=== PATIENT | female | born 1985 | race Caucasian/White ===

== ENCOUNTER 2016-11-24 11:17 | Inpatient (IN) | payer OTHER ==
[2016-11-24] MEDS ORDERED: Sodium Chloride 0.9% 10 ML Syringe FLUSH PRN (12:42)
[2016-11-24] MEDS ORDERED: Nalbuphine 20 MG/1 ML Amp IVPUSH PRN (12:42)
[2016-11-24] MEDS ORDERED: Ondansetron 4 MG/2 ML SDV IVPUSH PRN (12:42)
[2016-11-24] MEDS ORDERED: Lidocaine 1% 50 ML MDV INJECT ONE (12:42)
[2016-11-24] MEDS ORDERED: Oxytocin/Lactated Ringers 10 UNIT/1,000 ML BAG IV SCH ×2 (12:45→13:00)
[2016-11-24] MEDS ORDERED: diphenhydrAMINE 50 MG/ML SDV IVPUSH PRN (13:00)
[2016-11-24] MEDS ORDERED: ePHEDrine 50 MG/ML SDV IVPUSH PRN (13:00)
[2016-11-24] MEDS ORDERED: fentaNYL 100 MCG/2 ML SDV EPIDUR PRN (13:00)
[2016-11-24] MEDS ORDERED: Bupivacaine/fentaNYL/NS 100 ML Bag EPIDUR SCH (13:00)
--- NOTE | 2016-11-24 13:06 | PCM.PREANE ---
Preanesthetic Assessment - Anesthesia/Transfusion/Family Hx Anesthesia History: Prior Anesthesia Without Reaction Family History of Anesthesia Reaction: No Transfusion History: Prior Transfusion Without Reaction (plasma) - Review of Systems General: No Symptoms Pulmonary: No Symptoms Cardiovascular: No Symptoms Gastrointestinal: No symptoms Neurological: No Symptoms Other: Reports: Diabetes - Physical Assessment Pulse: 57 O2 Sat by Pulse Oximetry: 96 Respiratory Rate: 20 Blood Pressure: 116/82 Height: 5 ft 3 in Weight: 77.882 kg ASA Class: 2 Mental Status: Alert & Oriented x3 Airway Class: Mallampati = 1 Dentition: Reports: Normal Dentition Thyro-Mental Finger Breadths: 3 Mouth Opening Finger Breadths: 3 ROM/Head Extension: Full Lungs: Clear to auscultation, Normal respiratory effort Cardiovascular: Regular Rate, Regular Rhythm - Allergies Allergies/Adverse Reactions: Allergies Allergy/AdvReac Type Severity Reaction Status Date / Time No Known Allergies Allergy Verified 11/24/16 12:31 - Blood Blood Available: No - Acknowledgements Anesthesia Type Planned: Epidural Pt an Appropriate Candidate for the Planned Anesthesia: Yes Alternatives and Risks of Anesthesia Discussed w Pt/Guardian: Yes Pt/Guardian Understands and Agrees with Anesthesia Plan: Yes PreAnesthesia Questionnaire Cardiovascular History: Reports: None Respiratory History: Reports: None : 5 (38 weeks) Para: 3 Endocrine/Metabolic History: Reports: Diabetes, type I Hematologic History: Reports: Other (see below) (Factor V) Oncologic (Cancer) History: Reports: None - Past Surgical History Female Surgical History: Reports: section - History Comment History Comment: novalog insulin daily - SUBSTANCE USE Smoking Status *Q: Never Smoker Tobacco Use Within Last Twelve Months: No Second Hand Smoke Exposure: No Days Per Week of Alcohol Use: 0 Recreational Drug Use History: No - HOME MEDS Home Medications: Home Meds Folic Acid/Multivit-Minerals [Adult Multivitamin Gummies] 800 mcg PO DAILY 11/24 [History] Non-Formulary Medication [NF Drug] 1 each SQ ASDIRECTED 11/24/16 [History] Vit W-Ca,Fe,FA(<1 mg) [ Vitamins] 1 each PO DAILY 11/24/16 [ History] - CURRENT (IN HOUSE) MEDS Current Meds: Current Medications Lactated Ringer's (Ringers, Lactated) 1,000 mls @ 100 mls/hr IV ASDIRECTED ANIYA Oxytocin/Lactated Ringer's (Pitocin In Lr 10 Units/1,000 Ml) 10 unit in 1,000 mls @ 500 mls/hr IV TITRATE ANIYA Oxytocin/Lactated Ringer's (Pitocin In Lr 10 Units/1,000 Ml) 10 unit in 1,000 mls @ 12 mls/hr IV TITRATE ANIYA; 2 MUNITS/MIN PRN Reason: Protocol Nalbuphine HCl (Nubain) 10 mg IVPUSH Q2H PRN PRN Reason: Pain (moderate 4-6) Ondansetron HCl (Zofran) 4 mg IVPUSH Q4H PRN PRN Reason: Nausea/Vomiting Sodium Chloride (Saline Flush) 10 ml FLUSH ASDIRECTED PRN PRN Reason: Keep Vein Open Discontinued Medications Lidocaine HCl (Xylocaine 1%) 50 ml INJECT ONETIME ONE Stop: 11/24/16 12:43 Preanesthetic Assessment - PHYSICAL ASSESSMENT Height: 5 ft 3 in Weight: 77.882 kg - ALLERGIES Allergies/Adverse Reactions: Allergies Allergy/AdvReac Type Severity Reaction Status Date / Time No Known Allergies Allergy Verified 11/24/16 12:31
[2016-11-24] MEDS ORDERED: Dextrose 5%-Lactated Ringers 1,000 ML IV SCH (13:15)
--- NOTE | 2016-11-24 15:46 | PCM.LDHP ---
L&D History of Present Illness - General Date of Service: 11/24/16 Admit Problem/Dx: Patient Status Order with Admit Dx/Problem 11/24/16 12:42 Patient Status [ADT] Routine Admission Diagnosis/Problem Admission Diagnosis/Problem - planned 11/24/16 15:11 Intrauterine at 38-3/7 weeks gestation for induction of labor due to high risk status. 11/24/16 15:57 Source of Information: Patient History Limitations: Reports: No limitations - History of Present Illness Introduction:: History of Present Illness: Amy is a 30-year-old 5 para 2-1-1-3 female presenting for induction of labor with history of Type 1 insulin-dependent diabetes mellitus, x2, HELLP syndrome with first , heterozygous mutation for Factor V Leiden, and MTHFR deficiency. ALEXSANDRA is 12/05/16 based on early ultrasound on 04/21/16. She has not had many contractions and is feeling comfortable so far. course has been complicated by intermittent RUQ abdominal discomfort that eventually disappeared. Blood sugars were largely well-controlled. She has a bit of trouble getting them leveled out right away and was having some highs in the 200s after breakfast, however, she was able to control them. She has had some night-time lows toward the end of . Last HbA1c done on 07/28/17 was 5.2. 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 ALEXSANDRA 12/05/16 based on ultrasound on 04/21/16. Her first was complicated by HELLP syndrome and ended in a section with a viable M weighing 7lbs 2oz. Second full-term was a successful , 7lbs 1oz M. Third full-term was also a successful of a viable M, 8lbs 2oz. She also has history of a miscarriage. Prior to , menses were regular. She was not on BCP at time of conception. No history of STIs Blood type O positive, antibody negative. Rubella immune, VDRL/RPR nonreactive. Hepatitis B surface antigen negative, HIV negative. Chlamydia and gonorrhea PCR negative. GBS negative. Tdap and influenza vaccinations given. Past Medical History: - Type 1 Diabetes Mellitus - Heterozygous mutation, Factor V Leiden - MTHFR Deficiency - History of plasma transfusion Past Surgical History: - section x1, 2008 Allergies: No known drug allergies. Medications: - Glucagon for emergencies, 1 mg injection - Bill Contour Test In Vitro Strips - vitamins - Folic Acid 800 mcg - Insulin pump, novolog Family History: - Mother - alive and well - Father - hypertension; alive and well - One sister, one brother - both alive and well - MGM - CVA - MGF - alive, kidney disease - PGM - CVA, - PGF - Social History: Patient lives in [place] with her and three sons. She denies use of tobacco products, drugs of abuse, and alcohol. Review of Systems: General: Patient is feeling well and is not in any acute distress. HEENT: Normal. Cardiac: No palpitations, discomfort. Respiratory: No shortness of breath, wheezing, coughing. GI: No changes in bowel habits unrelated to . : No changes unrelated to . Musculoskeletal: Normal. Neurologic/Psychiatric: Good mood, no anxiety or depression. Physical Exam: General: Pleasant, well-nourished female in no apparent distress. No pain with contractions yet. Vitals: BP 116/82, pulse 57, respirations 20, oxygen sats 96%. Good variability with accelerations on monitor. HEENT: Normocephalic, atraumatic. PERRLA. Symmetrical ears and nose. Cardiovascular: Regular rate and rhythm without murmur. Respiratory: Clear to auscultation bilaterally. No wheezing. Abdomen: Gravid, appropriate for gestational age. Genitourinary: Normal. Cervix: 3 cm/80%/-3/soft/mid-post Musculoskeletal: Good muscle tone. Minimal edema. Neurologic: Normal. - Related Data Allergies/Adverse Reactions: Allergies Allergy/AdvReac Type Severity Reaction Status Date / Time No Known Allergies Allergy Verified 11/24/16 12:31 Home Medications: Home Meds Folic Acid/Multivit-Minerals [Adult Multivitamin Gummies] 800 mcg PO DAILY 11/24 [History] Non-Formulary Medication [NF Drug] 1 each SQ ASDIRECTED 11/24/16 [History] Vit W-Ca,Fe,FA(<1 mg) [ Vitamins] 1 each PO DAILY 11/24/16 [ History] Past Medical History Cardiovascular History: Reports: None Respiratory History: Reports: None OBSTETRICIAN GYNECOLOGIST History: Reports: , Other (see below) Other OB/BYN History: Hx of Previous Section Endocrine/Metabolic History: Reports: Diabetes, type I Hematologic History: Reports: Other (see below) (Factor V) Other Hematologic History: Heteroxygous factor V Leiden mutation, Hx of HELLP syndrome with first . Oncologic (Cancer) History: Reports: None - Past Surgical History Female Surgical History: Reports: section - History Comment History Comment: novalog insulin daily Social & Family History - Family History Family Medical History: Noncontributory - Tobacco Use Smoking Status *Q: Never Smoker Second Hand Smoke Exposure: No - Caffeine Use Caffeine Use: Reports: None - Alcohol Use Days Per Week of Alcohol Use: 0 - Recreational Drug Use Recreational Drug Use: No H&P Review of Systems - Review of Systems: Review Of Systems: See Below L&D Exam - Exam Exam: See Below - Vital Signs Vital Signs: Last Vital Signs Temp 36.1 C 11/24/16 11:45 Pulse 57 L 11/24/16 13:07 Resp 20 11/24/16 13:07 BP 116/82 11/24/16 13:07 Pulse Ox 96 11/24/16 13:07 Weight: 77.882 kg - Patient Data Lab Results last 24 hrs: Laboratory Results - last 24 hr 11/24/16 11/24/16 11/24/16 Range/Units 13:05 13:05 14:32 WBC 9.32 (3.98-10.04) K/mm3 RBC 4.26 (3.98-5.22) M/mm3 Hgb 13.4 (11.2-15.7) gm/L Hct 38.9 (34.1-44.9) % MCV 91.3 (79.4-94.8) fl MCH 31.5 (25.6-32.2) pg MCHC 34.4 (32.2-35.5) g/dl RDW Std Deviation 46.7 H (36.4-46.3) fL Plt Count 205 (182-369) K/mm3 MPV 9.6 (9.4-12.3) fl Neut % (Auto) 72.8 H (34.0-71.1) % Lymph % (Auto) 19.2 L (19.3-51.7) % Kern % (Auto) 7.0 (4.7-12.5) % Eos % (Auto) 0.6 L (0.7-5.8) Baso % (Auto) 0.3 (0.1-1.2) % Neut # (Auto) 6.78 H (1.56-6.13) K/mm3 Lymph # (Auto) 1.79 (1.18-3.74) K/mm3 Kern # (Auto) 0.65 H (0.24-0.36) K/mm3 Eos # (Auto) 0.06 (0.04-0.36) K/mm3 Baso # (Auto) 0.03 (0.01-0.08) K/mm3 POC Glucose 118 H (70-105) mg/dL Blood Type O NEGATIVE Gel Antibody Screen Positive Result Diagrams: 11/24/16 13:05 Problem List Initiated/Reviewed/Updated: Yes Orders Last 24hrs: Active Orders 24 hr Category Date Time Status Patient Status [ADT] Routine ADT 11/24/16 12:42 Active Activity as Tolerated [RC] PFP Care 11/24/16 12:42 Active Blood Glucose Check, Bedside [RC] Q1HR Care 11/24/16 13:00 Active Communication Order [RC] ASDIRECTED Care 11/24/16 12:42 Active Heart Tones [RC] ASDIRECTED Care 11/24/16 12:42 Active Notify Provider [RC] ASDIRECTED Care 11/24/16 13:00 Active Notify Provider [RC] PFP Care 11/24/16 12:42 Active Notify Provider [RC] PRN Care 11/24/16 12:42 Active Peripheral IV Care [RC] . DIRECTED Care 11/24/16 12:42 Active Vital Signs [RC] PER UNIT ROUTINE Care 11/24/16 12:42 Active Regular Diet [DIET] Diet 11/24/16 Lunch Active ANTIBODY IDENTIFICATION [BBK] Stat Lab 11/24/16 13:05 Results TYPE AND SCREEN [BBK] Stat Lab 11/24/16 13:05 Results Bupivacaine/fentaNYL/NS [fentaNYL/Bupivacaine/NS 2 MCG- Med 11/24/16 13:00 Active 0.125% 100 ML] 100 ml EPIDUR ASDIRECTED Dextrose 5%-Lactated Ringers 1,000 ml Med 11/24/16 13:15 Active IV ASDIRECTED Lactated Ringers [Ringers, Lactated] 1,000 ml Med 11/24/16 12:45 Active IV ASDIRECTED Nalbuphine [Nubain] Med 11/24/16 12:42 Active 10 mg IVPUSH Q2H PRN Ondansetron [Zofran] Med 11/24/16 12:42 Active 4 mg IVPUSH Q4H PRN Oxytocin/Lactated Ringers [Pitocin in LR 10 Units/1,000 Med 11/24/16 12:45 Active ML] 10 unit in 1,000 ml IV TITRATE Oxytocin/Lactated Ringers [Pitocin in LR 10 Units/1,000 Med 11/24/16 13:00 Active ML] 10 unit in 1,000 ml IV TITRATE Sodium Chloride 0.9% [Saline Flush] Med 11/24/16 12:42 Active 10 ml FLUSH ASDIRECTED PRN diphenhydrAMINE [Benadryl] Med 11/24/16 13:00 Active 25 mg IVPUSH Q6H PRN ePHEDrine [ePHEDrine Sulfate] Med 11/24/16 13:00 Active 5 mg IVPUSH ASDIRECTED PRN fentaNYL [Sublimaze] Med 11/24/16 13:00 Active 100 mcg EPIDUR Q3H PRN Electronic Heart Tones Ext w TOCO [WOMSER] Oth 11/24/16 12:42 Ordered Routine Electronic Heart Tones Internal [WOMSER] Per Unit Oth 11/24/16 12:42 Ordered Routine Peripheral IV Insertion Adult [OM.PC] Routine Oth 11/24/16 12:42 Ordered Resuscitation Status Routine Resus Stat 11/24/16 12:42 Ordered Medication Orders Diphenhydramine HCl (Benadryl) 25 mg IVPUSH Q6H PRN PRN Reason: pruritis Ephedrine Sulfate (Ephedrine Sulfate) 5 mg IVPUSH ASDIRECTED PRN PRN Reason: Hypotension Fentanyl (Sublimaze) 100 mcg EPIDUR Q3H PRN PRN Reason: Pain Fentanyl/Bupivacaine HCl (Fentanyl/Bupivacaine/Ns 2 Mcg-0.125% 100 Ml) 100 ml EPIDUR ASDIRECTED ANIYA Lactated Ringer's (Ringers, Lactated) 1,000 mls @ 100 mls/hr IV ASDIRECTED ANIYA Oxytocin/Lactated Ringer's (Pitocin In Lr 10 Units/1,000 Ml) 10 unit in 1,000 mls @ 500 mls/hr IV TITRATE ANIYA Oxytocin/Lactated Ringer's (Pitocin In Lr 10 Units/1,000 Ml) 10 unit in 1,000 mls @ 12 mls/hr IV TITRATE ANIYA; 2 MUNITS/MIN PRN Reason: Protocol Last Titration: 11/24/16 15:00 Dose: 4 munits/min, 24 mls/hr Admin: 11/24/16 13:30 Dose: 2 munits/min, 12 mls/hr Dextrose/Lactated Ringer's (Dextrose 5%-Lactated Ringers) 1,000 mls @ 100 mls/ hr IV ASDIRECTED ANIYA Last Admin: 11/24/16 13:30 Dose: 100 mls/hr Nalbuphine HCl (Nubain) 10 mg IVPUSH Q2H PRN PRN Reason: Pain (moderate 4-6) Ondansetron HCl (Zofran) 4 mg IVPUSH Q4H PRN PRN Reason: Nausea/Vomiting Sodium Chloride (Saline Flush) 10 ml FLUSH ASDIRECTED PRN PRN Reason: Keep Vein Open Assessment/Plan Comment:: Assessment: 1. Intrauterine at 38-3/7 weeks gestation age. 2. Type 1 Diabetes mellitus 3. History of primary section and x2 4. Heterozygous mutation for Factor V Leiden 5. MTHFR Deficiency 6. GBS negative. 7. Open to an epidural 8. Tdap given. Plan: 1. IV Pitocin to augment labor 2. Hourly checks of blood sugars 3. Continuous heart rate monitoring. 4. Epidural if/when desired. 5. Anticipate normal spontaneous vaginal delivery
[2016-11-24] MEDS: Lactated Ringers 1,000 ML IV SCH ×3 (18:07→20:25)
--- NOTE | 2016-11-24 20:54 | PCM.SN ---
- Free Text/Narrative Note: Amy is a 30-year-old 5 now para 3-1-1-4 female. She was brought in this morning for an induction. She slowly progressed to 5 cm so was augmented with IV pitocin. Artificial rupture of membranes was performed once baby's head was low enough. She quickly progressed to complete. She delivered a 3450g (7lbs 9.7oz), 21 inch long, viable male in REGINE position over an intact perineum at 2028 hours. Baby's name is Kanika Edwards. Apgars were 9 and 9 and 1 and 5 minutes, respectively. Placenta was then delivered at 2033 hours in a Best presentation. EBL 200cc. Nuchal cord x1, easily reduced over the head. Patient plans to nurse. She is doing well.
[2016-11-24] MEDS ORDERED: Benzocaine/Menthol 20%-0.5% Spray 56 GM Canister TOP PRN (21:03)
[2016-11-24] MEDS ORDERED: Lanolin 100% Cream 7 GM Tube TOP PRN (21:03)
[2016-11-24] MEDS ORDERED: Docusate Sodium 100 MG Cap PO PRN (21:03)
[2016-11-24] MEDS ORDERED: Witch Hazel Medicated Pads 100/Jar TOP PRN (21:03)
[2016-11-24] MEDS ORDERED: Acetaminophen 325 MG Tab PO PRN (21:03)
[2016-11-25] MEDS: Ibuprofen 600 MG Tab PO PRN ×4 (03:24→17:45)
--- NOTE | 2016-11-25 07:34 | PCM.SN ---
- Free Text/Narrative Note: Subjective: Amy is a 30-year-old S3W5-1-0-2 female who is day 1 today. She is feeling pretty good this morning. Bleeding is still fairly heavy and pain isn't "too bad". Breast feeding is going well so far and blood sugars have been controlled. She was resting quietly in bed this morning. Objective: Afebrile, no tachycardia. WBC 11.84, RBC 4.11, Hgb 12.9. Abdomen is soft, nontender. Uterus 4 fingers below umbilicus. Assessment/Plan: Day 1. Patient is doing well, pain controlled for now. Stay on top of pain control. Continue monitoring blood sugars. Discharge home, possibly tomorrow.
--- NOTE | 2016-11-25 08:48 | PCM48HPAN ---
Post Anesthesia Note - EVALUATION WITHIN 48HRS OF ANESTHETIC Vital Signs in Normal Range: Yes Patient Participated in Evaluation: Yes Respiratory Function Stable: Yes Airway Patent: Yes Cardiovascular Function Stable: Yes Hydration Status Stable: Yes Pain Control Satisfactory: Yes Nausea and Vomiting Control Satisfactory: Yes Mental Status Recovered: Yes
[2016-11-25] MEDS ORDERED: Bupivacaine 0.25% 10 ML SDV ONE (22:22)
[2016-11-26 05:47] VITALS: BP 117/71
--- NOTE | 2016-11-26 08:54 | PCM.DCSUM1 ---
Discharge Summary - Hospital Course Free Text/Narrative:: Amy is a 30-year-old 5 now para 3-1-1-4 female. She was brought in this morning for an induction. She slowly progressed to 5 cm so was augmented with IV pitocin. Artificial rupture of membranes was performed once baby's head was low enough. She quickly progressed to complete. She delivered a 3450g (7lbs 9.7oz), 21 inch long, viable male in REGINE position over an intact perineum at 2028 hours. Baby's name is Kanika Edwards. Apgars were 9 and 9 and 1 and 5 minutes, respectively. Placenta was then delivered at 2033 hours in a Best presentation. EBL 200cc. Nuchal cord x1, easily reduced over the head. Patient plans to nurse. blood sugars have been doing well. Stable. Is doing well. She is nursing without problems and lochia is minimal. Patient is ready for discharge - Discharge Data Discharge Date: 11/26/16 Discharge Disposition: Home, Self-Care 01 Condition: Good - Patient Instructions Diet: Regular Diet as Tolerated Activity: As Tolerated (No intercourse or tampons till discharge is gone. ) Driving: May Drive Today Showering/Bathing: May Shower (May take a bath.) Notify Provider of: Fever, Increased Pain, Swelling and Redness, Nausea and/or Vomiting - Discharge Plan Home Medications: Home Meds Folic Acid/Multivit-Minerals [Adult Multivitamin Gummies] 800 mcg PO DAILY 11/24 [History] Non-Formulary Medication [NF Drug] 1 each SQ ASDIRECTED 11/24/16 [History] Vit W-Ca,Fe,FA(<1 mg) [ Vitamins] 1 each PO DAILY 11/24/16 [ History] Ibuprofen [IJD: Ibuprofen] 600 mg PO Q4H PRN #30 tablet 11/26/16 [Rx] Referrals: Eleazar Olivera MD [Primary Care Provider] - (RTC 6 weeks-Dr. Olivera-[facility] - Discharge Summary/Plan Comment DC Time >30 min.: No Discharge Summary/Plan Comment: Discharge instructions: 1. Discharge home. 2. Regular, high fiber, nursing diet. 3. Precautions given concern increased pain, bleeding, temperature, signs or symptoms of DVT/PE. 4. Medications medications to come discussed with him given to the patient. A clinic-Dr. Jarod alvarenga [facility]. Diagnosis: 1. 38 week intrauterine -delivered 2. History of previous section 3. Type 1 diabetes. Condition: Good - Patient Data Vitals - Most Recent: Last Vital Signs Temp 37.2 C 11/26/16 05:30 Pulse 57 L 11/26/16 05:30 Resp 16 11/26/16 05:30 BP 117/71 11/26/16 05:30 Pulse Ox 96 11/26/16 05:30 Weight - Most Recent: 77.882 kg I&O - Last 24 hours: Intake & Output 11/25/16 11/26/16 11/26/16 22:59 06:59 14:59 Intake Total 0 Balance 0 Lab Results - Last 24 hrs: Laboratory Results - last 24 hr 11/25/16 Range/Units 06:37 Blood Type O NEGATIVE Gel Antibody Screen Positive Screen 1 ros/5 flds - neg RhIG Candidate? Yes Rhogam Indicated Yes, baby rh pos H Med Orders - Current: Current Medications Acetaminophen (Tylenol) 650 mg PO Q4H PRN PRN Reason: mild pain or fever Benzocaine/Menthol (Dermoplast Pain Relief [place]) 0 gm TOP ASDIRECTED PRN PRN Reason: Perineal Comfort Measure Last Admin: 11/24/16 22:15 Dose: 1 canister Docusate Sodium (Colace) 100 mg PO BID PRN PRN Reason: Constipation Emollient Ointment (Lansinoh Hpa) 0 gm TOP ASDIRECTED PRN PRN Reason: Sore Nipples Ibuprofen (Motrin) 600 mg PO Q4H PRN PRN Reason: Mild pain or fever Last Admin: 11/25/16 17:45 Dose: 600 mg Witch Amanda (Tucks) 1 pad TOP ASDIRECTED PRN PRN Reason: Hemorrhoid pain Last Admin: 11/24/16 22:16 Dose: 1 container Discontinued Medications Diphenhydramine HCl (Benadryl) 25 mg IVPUSH Q6H PRN PRN Reason: pruritis Ephedrine Sulfate (Ephedrine Sulfate) 5 mg IVPUSH ASDIRECTED PRN PRN Reason: Hypotension Fentanyl (Sublimaze) 100 mcg EPIDUR Q3H PRN PRN Reason: Pain Last Admin: 11/24/16 18:47 Dose: 100 mcg Fentanyl/Bupivacaine HCl (Fentanyl/Bupivacaine/Ns 2 Mcg-0.125% 100 Ml) 100 ml EPIDUR ASDIRECTED [facility] Last Admin: 11/24/16 18:48 Dose: 100 ml Lactated Ringer's (Ringers, Lactated) 1,000 mls @ 100 mls/hr IV ASDIRECTED [facility] Last Admin: 11/24/16 20:25 Dose: 500 mls/hr Oxytocin/Lactated Ringer's (Pitocin In Lr 10 Units/1,000 Ml) 10 unit in 1,000 mls @ 500 mls/hr IV TITRATE ANIYA Oxytocin/Lactated Ringer's (Pitocin In Lr 10 Units/1,000 Ml) 10 unit in 1,000 mls @ 12 mls/hr IV TITRATE ANIYA; 2 MUNITS/MIN PRN Reason: Protocol Last Titration: 11/24/16 20:29 Dose: 500 mls/hr Dextrose/Lactated Ringer's (Dextrose 5%-Lactated Ringers) 1,000 mls @ 100 mls/ hr IV ASDIRECTED [facility] Last Infusion: 11/24/16 20:29 Dose: 50 mls/hr Lidocaine HCl (Xylocaine 1%) 50 ml INJECT ONETIME ONE Stop: 11/24/16 12:43 Last Admin: 11/24/16 20:57 Dose: Not Given Nalbuphine HCl (Nubain) 10 mg IVPUSH Q2H PRN PRN Reason: Pain (moderate 4-6) Ondansetron HCl (Zofran) 4 mg IVPUSH Q4H PRN PRN Reason: Nausea/Vomiting Sodium Chloride (Saline Flush) 10 ml FLUSH ASDIRECTED PRN PRN Reason: Keep Vein Open *Q Meaningful Use (DIS) - VTE *Q VTE Criteria *Q: - Stroke *Q Stroke Criteria *Q: - AMI *Q AMI Criteria *Q:
== END 2016-11-26 11:15 | disposition home or self-care (01) | DRG 774 ==
LOC: JD.OB 11:29 → OBSVTOIN 20:29 → JD.OB 20:29
PROVIDERS: ADMIT Obstetrics & Gynecology; ATTEND Obstetrics & Gynecology
PROC: 10E0XZZ Delivery of Products of Conception, External Approach (ICD-10-PCS; principal; 2016-11-24)
PROC: 10907ZC Drainage of Amniotic Fluid, Therapeutic from Products of Conception, Via Natural or Artificial Opening (ICD-10-PCS; 2016-11-24)
PROC: 00HU33Z Insertion of Infusion Device into Spinal Canal, Percutaneous Approach (ICD-10-PCS; 2016-11-24)
PROC: 3E0R3CZ (ICD-10-PCS; 2016-11-24)
DX: O99.284 Endocrine, nutritional and metabolic diseases complicating childbirth (principal); O24.02 Pre-existing type 1 diabetes mellitus, in childbirth; E72.12 Methylenetetrahydrofolate reductase deficiency; D68.51 Activated protein C resistance; E10.9 Type 1 diabetes mellitus without complications; O99.12 Other diseases of the blood and blood-forming organs and certain disorders involving the immune mechanism complicating childbirth; Z3A.38 38 weeks gestation of pregnancy; Z37.0 Single live birth; O34.211 Maternal care for low transverse scar from previous cesarean delivery; N85.8 Other specified noninflammatory disorders of uterus; Z79.4 Long term (current) use of insulin; Z96.41 Presence of insulin pump (external) (internal); O69.81X0 Labor and delivery complicated by cord around neck, without compression, not applicable or unspecified
CPT/HCPCS: 36415; 82962; 85025; 85027; 85461; 86850; 86870; 86900; 86901; A9270-GY; J2590; J2790; J3010; J7042; J7120

== ENCOUNTER 2019-10-05 09:22 | Inpatient (IN) | payer OTHER ==
[2019-10-05] MEDS ORDERED: Sodium Chloride 0.9% 10 ML Syringe FLUSH PRN (09:45)
[2019-10-05] MEDS ORDERED: Lactated Ringers 1,000 ML IV SCH (09:45)
[2019-10-05] MEDS ORDERED: Nalbuphine 10 MG/ML Syringe IVPUSH PRN (09:45)
--- NOTE | 2019-10-05 12:03 | PCM.SN ---
- Free Text/Narrative Note: Patient's came to desk at 10:09 and stated that she felt very light headed. I promptly went to the room and found patient briefly unresponsive. Blood pressure 60/40. Rapid response called. Blood glucose checked. See rr reporting. No bleeding. After about 5 minutes felt much better. Found to be complete.
--- NOTE | 2019-10-05 12:18 | PCM.LDHP ---
L&D History of Present Illness - General Date of Service: 10/05/19 Admit Problem/Dx: Patient Status Order with Admit Dx/Problem 10/05/19 09:45 Patient Status [ADT] Routine Admission Diagnosis/Problem Admission Diagnosis/Problem Active labor - Related Data Allergies/Adverse Reactions: Allergies Allergy/AdvReac Type Severity Reaction Status Date / Time No Known Allergies Allergy Verified 11/24/16 12:31 Home Medications: Home Meds Vit Calc,Iron,Folic [ Vitamins] 1 each PO DAILY 11/24/16 [ History] RX: Folic Acid/Multivit-Minerals [Adult Multivitamin Gummies] 800 mcg PO DAILY 11/24/16 [History] Aspirin [Adult Low Dose Aspirin EC] 81 mg PO DAILY 10/05/19 [History] Insulin Aspart (Niacinamide) [Fiasp Penfill 100 Unit/ml Cart] 100 unit SQ ASDIRECTED 10/05/19 [History] Past Medical History Cardiovascular History: Reports: None Respiratory History: Reports: None 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 Oncologic (Cancer) History: Reports: None - Past Surgical History Female Surgical History: Reports: Section - History Comment History Comment: novalog insulin daily Social & Family History - Family History Family Medical History: Noncontributory - Caffeine Use Caffeine Use: Reports: None H&P Review of Systems - Review of Systems: Review Of Systems: See Below General: Reports: No Symptoms HEENT: Reports: No Symptoms Pulmonary: Reports: No Symptoms Cardiovascular: Reports: No Symptoms Gastrointestinal: Reports: No Symptoms Genitourinary: Reports: No Symptoms Musculoskeletal: Reports: No Symptoms Skin: Reports: No Symptoms Psychiatric: Reports: No Symptoms Neurological: Reports: No Symptoms Hematologic/Lymphatic: Reports: No Symptoms Immunologic: Reports: No Symptoms L&D Exam - Exam Exam: See Below - Vital Signs Weight: 86.636 kg - OB Specific Contraction Intensity: Mild to Moderate Movement: Active Heart Tones: Present Heart Rate (FHR) Variability: Moderate (6-25 bmp) Presentation: Vertex - Braswell Score Braswell Score Cervix Position: Anterior Braswell Score Effacement: >80% Braswell Score Dilation: > 5 cm Braswell Score Infant's Station: +1, +2 - Exam General: Alert, Oriented HEENT: PERRLA, Conjunctiva Clear, EACs Clear, EOMI, Hearing Intact, Mucosa Moist & [place], Nares Patent, Normal Nasal Septum, Posterior Pharynx Clear, TMs Clear Neck: Supple, Trachea Midline Lungs: Clear to Auscultation, Normal Respiratory Effort Cardiovascular: Regular Rate, Regular Rhythm GI/Abdominal Exam: Normal Bowel Sounds, Soft, Non-Tender, No Organomegaly, No Distention, No Abnormal Bruit, No Mass, Pelvis Stable Back Exam: Normal Inspection, Full Range of Motion Extremities: Normal Inspection, Normal Range of Motion, Non-Tender, No Pedal Edema, Normal Capillary Refill Skin: Warm, Dry, Intact Neurological: Cranial Nerves Intact, Reflexes Equal Bilateral Psychiatric: Alert, Normal Affect, Normal Mood - Patient Data Lab Results Last 24 hrs: Laboratory Results - last 24 hr 10/05/19 10/05/19 10/05/19 Range/Units 09:41 09:50 09:55 WBC 12.32 H (3.98-10.04) K/mm3 RBC 4.43 (3.98-5.22) M/mm3 Hgb 12.2 (11.2-15.7) gm/dl Hct 38.1 (34.1-44.9) % MCV 86.0 (79.4-94.8) fl MCH 27.5 (25.6-32.2) pg MCHC 32.0 L (32.2-35.5) g/dl RDW Std Deviation 40.9 (36.4-46.3) fL Plt Count 264 (182-369) K/mm3 MPV 9.8 (9.4-12.3) fl Neut % (Auto) 81.1 H (34.0-71.1) % Lymph % (Auto) 12.4 L (19.3-51.7) % [place] % (Auto) 5.4 (4.7-12.5) % Eos % (Auto) 0.6 L (0.7-5.8) Baso % (Auto) 0.2 (0.1-1.2) % Neut # (Auto) 9.98 H (1.56-6.13) K/mm3 Lymph # (Auto) 1.53 (1.18-3.74) K/mm3 [place] # (Auto) 0.67 H (0.24-0.36) K/mm3 Eos # (Auto) 0.08 (0.04-0.36) K/mm3 Baso # (Auto) 0.02 (0.01-0.08) K/mm3 Sodium (136-145) mEq/L Potassium (3.5-5.1) mEq/L Chloride (98-107) mEq/L Carbon Dioxide (21-32) mEq/L Anion Gap (5-15) BUN (7-18) mg/dL Creatinine (0.55-1.02) mg/dL Est Cr Clr Drug Dosing mL/min Estimated GFR (MDRD) (>60) mL/min BUN/Creatinine Ratio (14-18) Glucose (74-106) mg/dL POC Glucose 67 L (70-105) mg/dL Calcium (8.5-10.1) mg/dL Total Bilirubin (0.2-1.0) mg/dL AST (15-37) U/L ALT (14-59) U/L Alkaline Phosphatase (46-116) U/L Total Protein (6.4-8.2) g/dl Albumin (3.4-5.0) g/dl Globulin gm/dL Albumin/Globulin Ratio (1-2) Blood Type O NEGATIVE Gel Antibody Screen Positive 10/05/19 10/05/19 Range/Units 09:55 10:09 WBC (3.98-10.04) K/mm3 RBC (3.98-5.22) M/mm3 Hgb (11.2-15.7) gm/dl Hct (34.1-44.9) % MCV (79.4-94.8) fl MCH (25.6-32.2) pg MCHC (32.2-35.5) g/dl RDW Std Deviation (36.4-46.3) fL Plt Count (182-369) K/mm3 MPV (9.4-12.3) fl Neut % (Auto) (34.0-71.1) % Lymph % (Auto) (19.3-51.7) % [place] % (Auto) (4.7-12.5) % Eos % (Auto) (0.7-5.8) Baso % (Auto) (0.1-1.2) % Neut # (Auto) (1.56-6.13) K/mm3 Lymph # (Auto) (1.18-3.74) K/mm3 [place] # (Auto) (0.24-0.36) K/mm3 Eos # (Auto) (0.04-0.36) K/mm3 Baso # (Auto) (0.01-0.08) K/mm3 Sodium 140 (136-145) mEq/L Potassium 3.6 (3.5-5.1) mEq/L Chloride 105 (98-107) mEq/L Carbon Dioxide 20 L (21-32) mEq/L Anion Gap 18.6 H (5-15) BUN 9 (7-18) mg/dL Creatinine 1.0 (0.55-1.02) mg/dL Est Cr Clr Drug Dosing 68.45 mL/min Estimated GFR (MDRD) > 60 (>60) mL/min BUN/Creatinine Ratio 9.0 L (14-18) Glucose 83 (74-106) mg/dL POC Glucose 94 (70-105) mg/dL Calcium 8.4 L (8.5-10.1) mg/dL Total Bilirubin 0.3 (0.2-1.0) mg/dL AST 33 (15-37) U/L ALT 32 (14-59) U/L Alkaline Phosphatase 141 H (46-116) U/L Total Protein 6.4 (6.4-8.2) g/dl Albumin 2.4 L (3.4-5.0) g/dl Globulin 4.0 gm/dL Albumin/Globulin Ratio 0.6 L (1-2) Blood Type Gel Antibody Screen Result Diagrams: 10/05/19 09:50 10/05/19 09:55 Problem List Initiated/Reviewed/Updated: Yes Orders Last 24hrs: Active Orders 24 hr Category Date Time Status Patient Status [ADT] Routine ADT 10/05/19 09:45 Active Activity as Tolerated [RC] PFP Care 10/05/19 09:45 Active Communication Order [RC] ASDIRECTED Care 10/05/19 09:45 Active Heart Tones [RC] ASDIRECTED Care 10/05/19 09:46 Active Non Stress Test [RC] PER UNIT ROUTINE Care 10/05/19 09:45 Active Notify Provider [RC] PFP Care 10/05/19 09:45 Active Notify Provider [RC] PRN Care 10/05/19 09:45 Active Peripheral IV Care [RC] . DIRECTED Care 10/05/19 09:46 Active Pump Management, Intrathecal [RC] ASDIRECTED Care 10/05/19 09:46 Active Urinary Catheter Assessment [RC] ASDIRECTED Care 10/05/19 09:45 Active Vital Signs [RC] PER UNIT ROUTINE Care 10/05/19 09:45 Active Regular Diet [DIET] Diet 10/05/19 Breakfast Active ANTIBODY IDENTIFICATION [BBK] Stat Lab 10/05/19 09:55 Results BLOOD BANK HOLD SPECIMEN [BBK] Stat Lab 10/05/19 09:55 Results RAPID PLASMA REAGIN,RPR [CHEM] Stat Lab 10/05/19 09:50 Received TYPE AND SCREEN [BBK] Stat Lab 10/05/19 09:55 Results Lactated Ringers [Ringers, Lactated] 1,000 ml Med 10/05/19 09:45 Active IV ASDIRECTED Nalbuphine [Nubain] Med 10/05/19 09:45 Active 10 mg IVPUSH Q2H PRN Sodium Chloride 0.9% [Saline Flush] Med 10/05/19 09:45 Active 10 ml FLUSH ASDIRECTED PRN Electronic Heart Tones Ext w TOCO [WOMSER] Oth 10/05/19 09:45 Ordered Routine Electronic Heart Tones Internal [WOMSER] Per Unit Oth 10/05/19 09:45 Ordered Routine Peripheral IV Insertion Adult [OM.PC] Routine Oth 10/05/19 09:45 Ordered Resuscitation Status Routine Resus Stat 10/05/19 09:45 Ordered Medication Orders Lactated Ringer's (Ringers, Lactated) 1,000 mls @ 100 mls/hr IV ASDIRECTED ANIYA Nalbuphine HCl (Nubain) 10 mg IVPUSH Q2H PRN PRN Reason: Pain Sodium Chloride (Saline Flush) 10 ml FLUSH ASDIRECTED PRN PRN Reason: Keep Vein Open
--- NOTE | 2019-10-05 12:24 | PCM.SN ---
- Free Text/Narrative Note: Stage I - Patient presented in active labor. Progressed to complete with overall reassuring FHT other than rapid response time period. Stage II - of viable male, weight 9#6 oz, 8/9 APGARS. Head delivered in controlled manner over intact perineum. Body and shoulders without significant difficultly. Cord clamped and cut. Baby to warmer.\ Stage III - of intact placenta. 3vc no laceration. EBL 400
[2019-10-05] MEDS ORDERED: Oxytocin/Lactated Ringers 10 UNIT/1,000 ML BAG IV SCH (13:15)
[2019-10-05] MEDS ORDERED: Witch Hazel Medicated Pads 40/Jar TOP PRN (14:01)
[2019-10-05] MEDS ORDERED: Benzocaine/Menthol 20%-0.5% Spray 56 GM Canister TOP PRN (14:01)
[2019-10-05] MEDS: Ibuprofen 600 MG Tab PO PRN (21:20)
[2019-10-06] MEDS: Ibuprofen 600 MG Tab PO PRN (06:31)
--- NOTE | 2019-10-06 07:05 | PCM.DCSUM1 ---
Discharge Summary - Hospital Course Diagnosis: Stroke: No - Discharge Data Discharge Date: 10/06/19 Discharge Disposition: Home, Self-Care 01 Condition: Good - Referral to Home Health Primary Care Physician: Ricarda Obregon MD - Patient Instructions Diet: Usual Diet as Tolerated Activity: No Strenuous Activities Driving: Do Not Drive Showering/Bathing: May Shower Notify Provider of: Fever, Increased Pain, Swelling and Redness, Drainage - Discharge Plan *PRESCRIPTION DRUG MONITORING PROGRAM REVIEWED*: No *COPY OF PRESCRIPTION DRUG MONITORING REPORT IN PATIENT [place]: No Home Medications: Home Meds Folic Acid/Multivit-Minerals [Adult Multivitamin Gummies] 800 mcg PO DAILY 11/24 [History] Vit Calc,Iron,Folic [ Vitamins] 1 each PO DAILY 11/24/16 [ History] Aspirin [Adult Low Dose Aspirin EC] 81 mg PO DAILY 10/05/19 [History] Insulin Aspart (Niacinamide) [Fiasp Penfill 100 Unit/ml Cart] 100 unit SQ ASDIRECTED 10/05/19 [History] Referrals: Eleazar Olivera MD [Physician] - (2 weeks ) - Discharge Summary/Plan Comment DC Time >30 min.: Yes - General Info Date of Service: 10/06/19 Functional Status: Reports: Pain Controlled - Review of Systems General: Reports: No Symptoms HEENT: Reports: No Symptoms Pulmonary: Reports: No Symptoms Cardiovascular: Reports: No Symptoms Gastrointestinal: Reports: No Symptoms Genitourinary: Reports: No Symptoms Musculoskeletal: Reports: No Symptoms Skin: Reports: No Symptoms Neurological: Reports: No Symptoms Psychiatric: Reports: No Symptoms - Patient Data Vitals - Most Recent: Last Vital Signs Temp 37.0 C 10/05/19 20:43 Pulse 79 10/05/19 20:43 Resp 14 10/05/19 20:43 BP 127/81 10/05/19 20:43 Pulse Ox 97 10/05/19 20:43 Weight - Most Recent: 86.636 kg I&O - Last 24 hours: Intake & Output 10/05/19 10/06/19 10/06/19 22:59 06:59 14:59 Intake Total 2 Balance 2 Lab Results - Last 24 hrs: Laboratory Results - last 24 hr 10/05/19 10/05/19 10/05/19 Range/Units 09:41 09:50 09:50 WBC 12.32 H (3.98-10.04) K/mm3 RBC 4.43 (3.98-5.22) M/mm3 Hgb 12.2 (11.2-15.7) gm/dl Hct 38.1 (34.1-44.9) % MCV 86.0 (79.4-94.8) fl MCH 27.5 (25.6-32.2) pg MCHC 32.0 L (32.2-35.5) g/dl RDW Std Deviation 40.9 (36.4-46.3) fL Plt Count 264 (182-369) K/mm3 MPV 9.8 (9.4-12.3) fl Neut % (Auto) 81.1 H (34.0-71.1) % Lymph % (Auto) 12.4 L (19.3-51.7) % [place] % (Auto) 5.4 (4.7-12.5) % Eos % (Auto) 0.6 L (0.7-5.8) Baso % (Auto) 0.2 (0.1-1.2) % Neut # (Auto) 9.98 H (1.56-6.13) K/mm3 Lymph # (Auto) 1.53 (1.18-3.74) K/mm3 [place] # (Auto) 0.67 H (0.24-0.36) K/mm3 Eos # (Auto) 0.08 (0.04-0.36) K/mm3 Baso # (Auto) 0.02 (0.01-0.08) K/mm3 Sodium (136-145) mEq/L Potassium (3.5-5.1) mEq/L Chloride (98-107) mEq/L Carbon Dioxide (21-32) mEq/L Anion Gap (5-15) BUN (7-18) mg/dL Creatinine (0.55-1.02) mg/dL Est Cr Clr Drug Dosing mL/min Estimated GFR (MDRD) (>60) mL/min BUN/Creatinine Ratio (14-18) Glucose (74-106) mg/dL POC Glucose 67 L (70-105) mg/dL Calcium (8.5-10.1) mg/dL Total Bilirubin (0.2-1.0) mg/dL AST (15-37) U/L ALT (14-59) U/L Alkaline Phosphatase (46-116) U/L Total Protein (6.4-8.2) g/dl Albumin (3.4-5.0) g/dl Globulin gm/dL Albumin/Globulin Ratio (1-2) RPR Non-reactive (NONREACTIVE) Blood Type Gel Antibody Screen Screen RhIG Candidate? Rhogam Indicated 10/05/19 10/05/19 10/05/19 Range/Units 09:55 09:55 10:09 WBC (3.98-10.04) K/mm3 RBC (3.98-5.22) M/mm3 Hgb (11.2-15.7) gm/dl Hct (34.1-44.9) % MCV (79.4-94.8) fl MCH (25.6-32.2) pg MCHC (32.2-35.5) g/dl RDW Std Deviation (36.4-46.3) fL Plt Count (182-369) K/mm3 MPV (9.4-12.3) fl Neut % (Auto) (34.0-71.1) % Lymph % (Auto) (19.3-51.7) % [place] % (Auto) (4.7-12.5) % Eos % (Auto) (0.7-5.8) Baso % (Auto) (0.1-1.2) % Neut # (Auto) (1.56-6.13) K/mm3 Lymph # (Auto) (1.18-3.74) K/mm3 [place] # (Auto) (0.24-0.36) K/mm3 Eos # (Auto) (0.04-0.36) K/mm3 Baso # (Auto) (0.01-0.08) K/mm3 Sodium 140 (136-145) mEq/L Potassium 3.6 (3.5-5.1) mEq/L Chloride 105 (98-107) mEq/L Carbon Dioxide 20 L (21-32) mEq/L Anion Gap 18.6 H (5-15) BUN 9 (7-18) mg/dL Creatinine 1.0 (0.55-1.02) mg/dL Est Cr Clr Drug Dosing 68.45 mL/min Estimated GFR (MDRD) > 60 (>60) mL/min BUN/Creatinine Ratio 9.0 L (14-18) Glucose 83 (74-106) mg/dL POC Glucose 94 (70-105) mg/dL Calcium 8.4 L (8.5-10.1) mg/dL Total Bilirubin 0.3 (0.2-1.0) mg/dL AST 33 (15-37) U/L ALT 32 (14-59) U/L Alkaline Phosphatase 141 H (46-116) U/L Total Protein 6.4 (6.4-8.2) g/dl Albumin 2.4 L (3.4-5.0) g/dl Globulin 4.0 gm/dL Albumin/Globulin Ratio 0.6 L (1-2) RPR (NONREACTIVE) Blood Type O NEGATIVE Gel Antibody Screen Positive Screen RhIG Candidate? Rhogam Indicated 10/05/19 10/05/19 10/05/19 Range/Units 12:04 14:21 15:50 WBC (3.98-10.04) K/mm3 RBC (3.98-5.22) M/mm3 Hgb (11.2-15.7) gm/dl Hct (34.1-44.9) % MCV (79.4-94.8) fl MCH (25.6-32.2) pg MCHC (32.2-35.5) g/dl RDW Std Deviation (36.4-46.3) fL Plt Count (182-369) K/mm3 MPV (9.4-12.3) fl Neut % (Auto) (34.0-71.1) % Lymph % (Auto) (19.3-51.7) % [place] % (Auto) (4.7-12.5) % Eos % (Auto) (0.7-5.8) Baso % (Auto) (0.1-1.2) % Neut # (Auto) (1.56-6.13) K/mm3 Lymph # (Auto) (1.18-3.74) K/mm3 [place] # (Auto) (0.24-0.36) K/mm3 Eos # (Auto) (0.04-0.36) K/mm3 Baso # (Auto) (0.01-0.08) K/mm3 Sodium (136-145) mEq/L Potassium (3.5-5.1) mEq/L Chloride (98-107) mEq/L Carbon Dioxide (21-32) mEq/L Anion Gap (5-15) BUN (7-18) mg/dL Creatinine (0.55-1.02) mg/dL Est Cr Clr Drug Dosing mL/min Estimated GFR (MDRD) (>60) mL/min BUN/Creatinine Ratio (14-18) Glucose (74-106) mg/dL POC Glucose 115 H 122 H (70-105) mg/dL Calcium (8.5-10.1) mg/dL Total Bilirubin (0.2-1.0) mg/dL AST (15-37) U/L ALT (14-59) U/L Alkaline Phosphatase (46-116) U/L Total Protein (6.4-8.2) g/dl Albumin (3.4-5.0) g/dl Globulin gm/dL Albumin/Globulin Ratio (1-2) RPR (NONREACTIVE) Blood Type Cancelled Gel Antibody Screen Cancelled Screen 0 ros/5 flds - neg RhIG Candidate? Yes Rhogam Indicated Cancelled 10/05/19 10/05/19 Range/Units 19:02 22:16 WBC (3.98-10.04) K/mm3 RBC (3.98-5.22) M/mm3 Hgb (11.2-15.7) gm/dl Hct (34.1-44.9) % MCV (79.4-94.8) fl MCH (25.6-32.2) pg MCHC (32.2-35.5) g/dl RDW Std Deviation (36.4-46.3) fL Plt Count (182-369) K/mm3 MPV (9.4-12.3) fl Neut % (Auto) (34.0-71.1) % Lymph % (Auto) (19.3-51.7) % [place] % (Auto) (4.7-12.5) % Eos % (Auto) (0.7-5.8) Baso % (Auto) (0.1-1.2) % Neut # (Auto) (1.56-6.13) K/mm3 Lymph # (Auto) (1.18-3.74) K/mm3 [place] # (Auto) (0.24-0.36) K/mm3 Eos # (Auto) (0.04-0.36) K/mm3 Baso # (Auto) (0.01-0.08) K/mm3 Sodium (136-145) mEq/L Potassium (3.5-5.1) mEq/L Chloride (98-107) mEq/L Carbon Dioxide (21-32) mEq/L Anion Gap (5-15) BUN (7-18) mg/dL Creatinine (0.55-1.02) mg/dL Est Cr Clr Drug Dosing mL/min Estimated GFR (MDRD) (>60) mL/min BUN/Creatinine Ratio (14-18) Glucose (74-106) mg/dL POC Glucose 208 H 190 H (70-105) mg/dL Calcium (8.5-10.1) mg/dL Total Bilirubin (0.2-1.0) mg/dL AST (15-37) U/L ALT (14-59) U/L Alkaline Phosphatase (46-116) U/L Total Protein (6.4-8.2) g/dl Albumin (3.4-5.0) g/dl Globulin gm/dL Albumin/Globulin Ratio (1-2) RPR (NONREACTIVE) Blood Type Gel Antibody Screen Screen RhIG Candidate? Rhogam Indicated Med Orders - Current: Current Medications Benzocaine/Menthol (Dermoplast Pain Relief [place]) 0 gm TOP ASDIRECTED PRN PRN Reason: Perineal Comfort Measure Oxytocin/Lactated Ringer's (Pitocin In Lr 10 Units/1,000 Ml) 10 unit in 1,000 mls @ 500 mls/hr IV .CONTINUOUS ANIYA Last Admin: 10/05/19 10:55 Dose: 500 mls/hr Ibuprofen (Motrin) 600 mg PO Q6H PRN PRN Reason: Mild pain or fever Last Admin: 10/06/19 06:31 Dose: 600 mg [place] (Tucks) 1 pad TOP ASDIRECTED PRN PRN Reason: Pain Discontinued Medications Lactated Ringer's (Ringers, Lactated) 1,000 mls @ 100 mls/hr IV ASDIRECTED ANIYA Last Admin: 10/05/19 09:45 Dose: 100 mls/hr Nalbuphine HCl (Nubain) 10 mg IVPUSH Q2H PRN PRN Reason: Pain Sodium Chloride (Saline Flush) 10 ml FLUSH ASDIRECTED PRN PRN Reason: Keep Vein Open - Exam General: Reports: Alert, Oriented HEENT: Reports: Pupils Equal, Pupils Reactive, EOMI, Mucous Membr. Moist/[place] Neck: Reports: Supple Lungs: Reports: Clear to Auscultation, Normal Respiratory Effort Cardiovascular: Reports: Regular Rate, Regular Rhythm GI/Abdominal Exam: Normal Bowel Sounds, Soft, Non-Tender, No Organomegaly Rectal (Female) Exam: Normal Exam, Normal Rectal Tone Back Exam: Reports: Normal Inspection, Full Range of Motion Extremities: Normal Inspection, Normal Range of Motion, Non-Tender, No Pedal Edema, Normal Capillary Refill Skin: Reports: Warm, Dry, Intact Wound/Incisions: Reports: Healing Well Neurological: Reports: No New Focal Deficit Psy/Mental Status: Reports: Alert, Normal Affect, Normal Mood
[2019-10-06 16:58] VITALS: BP 120/88; PULSE 81
== END 2019-10-06 16:45 | disposition home or self-care (01) | DRG 807 ==
LOC: JD.OB 09:22 → OBSVTOIN 10:54 → JD.OB 10:55
PROVIDERS: ADMIT Obstetrics & Gynecology; ATTEND Obstetrics & Gynecology
PROC: 10E0XZZ Delivery of Products of Conception, External Approach (ICD-10-PCS; principal; 2019-10-05)
PROC: 3E0334Z Introduction of Serum, Toxoid and Vaccine into Peripheral Vein, Percutaneous Approach (ICD-10-PCS; 2019-10-05)
DX: O24.92 Unspecified diabetes mellitus in childbirth (principal); Z37.0 Single live birth; O26.893 Other specified pregnancy related conditions, third trimester; Z3A.37 37 weeks gestation of pregnancy; Z67.41 Type O blood, Rh negative
CPT/HCPCS: 36415; 59025; 59409; 80053; 82962; 85025; 85461; 86592; 86850; 86870; 86900; 86901; 93005; A9270-GY; J2590; J2790; J7120